=== PATIENT | male | born 1985 | race Caucasian/White ===

== ENCOUNTER 2016-10-08 14:32 | Emergency (ER) | payer MEDICAID, OTHER ==
[~2016-10-08] VITALS: Ht 177.8 cm; Wt 77.1 kg
[2016-10-08 14:32] VITALS: BP 144/78; PULSE 80; RESP 13; TEMP 97.8; O2SAT 96
--- NOTE | 2016-10-08 14:58 | NUR ---
Patient to ER Chair for evaluation. Side rails up. Report given to [place].
--- NOTE | 2016-10-08 15:00 | NUR ---
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
--- NOTE | 2016-10-08 15:11 | NUR ---
Silvana Subramanian GAG WRITER at bedside Examining patient
[2016-10-08] MEDS ORDERED: KETOROLAC TROMETHAMINE 60 MG/2 ML VIAL IM ONE (15:30)
--- NOTE | 2016-10-08 17:00 | NUR ---
Pt on stable condition, denies SOB or pain at this time. VSS
[2016-10-08 17:25] LABS: BASOPHILS % (AUTO) 0.3 % (0.0-2.0); EOSINOPHILS # (AUTO) 0.5 K/uL (0.0-0.4); EOSINOPHILS % (AUTO) 4.9 % (0.0-4.0); HEMOGLOBIN 15.6 g/dL (14.0-18.0); LYMPHOCYTES # (AUTO) 2.6 K/uL (1.0-5.5); LYMPHOCYTES % (AUTO) 26.1 % (20.5-51.5); MEAN CORPUSCULAR HEMOGLOBIN 31 pg (27-31); MEAN CORPUSCULAR HGB CONC 34 % (32-36); MEAN CORPUSCULAR VOLUME 90 fL (79.0-98.0); MONOCYTES % (AUTO) 9.9 % (1.7-9.3); NEUTROPHILS # (AUTO) 5.9 K/uL (1.8-7.7); NEUTROPHILS % (AUTO) 58.8 % (40.0-70.0); PLATELET COUNT (AUTO) 314 K/uL (130-430)
[2016-10-08 17:33] LABS: CALCIUM 9.1 mg/dL (8.4-11.0); CREATININE 1.04 mg/dL (0.55-1.30)
[2016-10-08 17:38] LABS: TOTAL BILIRUBIN 1.1 mg/dL (0.0-1.0); TOTAL PROTEIN, SERUM 7.9 g/dL (6.4-8.3)
--- NOTE | 2016-10-08 18:20 | NUR ---
Patient given written and verbal discharge instructions and verbalizes understanding. ER MD discussed with patient the results and treatment provided. Given copies of tests performed in ER. Patient in stable condition. ID arm band removed. Rx of Bacitracin given. Patient educated on pain management and to follow up with PMD. Pain Scale 0/10 . Opportunity for questions provided and answered.
[2016-10-08 18:30] VITALS: BP 142/78; PULSE 80; RESP 13; TEMP 97.8; O2SAT 96
--- NOTE | 2016-10-08 18:30 | NUR ---
Patient does not wish to proceed with medical care recommended by GISELA Pina. Patient given information related to possible complications, up to and including , which could occur as a result of leaving hospital at this time. Patient verbalizes understanding of risks involved leaving against medical advice. Patient has signed AMA form.
== END 2016-10-08 18:30 | disposition left against medical advice (07) ==
LOC: SED 14:33
DX: R07.9 Chest pain, unspecified (principal); F11.20 Opioid dependence, uncomplicated; F17.200 Nicotine dependence, unspecified, uncomplicated; R51 Headache; B19.20 Unspecified viral hepatitis C without hepatic coma; Z53.20 Procedure and treatment not carried out because of patient's decision for unspecified reasons
CPT/HCPCS: 36415; 71010; 80053; 83690; 84484; 85025; 85379; 93005; 96372; 99285; J1885

== ENCOUNTER 2017-05-11 18:12 | Emergency (ER) | payer MEDICAID ==
[~2017-05-11] VITALS: Ht 180.3 cm; Wt 76.2 kg
[2017-05-11 18:16] VITALS: BP_SYST 135
--- NOTE | 2017-05-11 18:16 | NUR ---
Placed in room 01. Placed on guide cruise, blood pressure machine and pulse oximeter. To gown for exam. Side rails up.
--- NOTE | 2017-05-11 19:10 | NUR ---
ER Dr. Davey at bedside examining patient.
--- NOTE | 2017-05-11 19:20 | NUR ---
Patient lethargic, slowed and slurred response when asked questions. Officer states that patient was found by his girlfriend prior to ER visit, states patient was unresponsive with drug paraphrenalia found next to the patient. Patient awakens in response to pain stimuli. No signs of bleeding or structural abnormalities noted to patient's body. Per patient, officer denies any other complaints.
--- NOTE | 2017-05-11 19:28 | NUR ---
[place] [employer] officers left ER, stated to call [place] [employer] once patient is stable.
[2017-05-11] MEDS ORDERED: NALOXONE HCL 2 MG/2 ML SYR (NARCAN) IM ONE (19:30)
--- NOTE | 2017-05-11 19:30 | NUR ---
ER Dr. Stanford at bedside examining patient.
[2017-05-11] MEDS ORDERED: NALOXONE HCL 2 MG/2 ML SYR ONE (19:39)
--- NOTE | 2017-05-11 19:40 | NUR ---
Patient stable, vital signs within therapeutic range. Symmetrical rise and fall of chest noted. Speech slow and slightly slurred, but able to communicate needs effectively. Will continue to monitor.
--- NOTE | 2017-05-11 19:48 | NUR ---
Patient AAOx4, able to state his name, , his age, and purpose for being in ER. Able to state current location. Vital signs within therapeutic range. Will continue to monitor.
--- NOTE | 2017-05-11 21:20 | NUR ---
Called [facility], states they are still trying to find information on the patient before coming to visit the patient in the ER. Will continue to monitor.
[2017-05-11 21:30] VITALS: BP_SYST 131
--- NOTE | 2017-05-11 21:30 | NUR ---
Patient in ER bed with girlfriend, told patient and patient's girlfriend that he needed to stay in the ER for discharge papers. Patient is alert and oriented x4, ambulatory with steady gait. Patient denies any complaints at this time. No signs of distress noted.
--- NOTE | 2017-05-11 21:42 | NUR ---
Patient left out of ER bay with girlfriend. Patient did not have ID armband when he left. I told the patient and girlfriend prior to this incident that they needed to stay in the ER in order to be formally discharged. Patient stable, no signs of distress noted. [place] [employer] states they will come to ER.
--- NOTE | 2017-05-11 22:52 | NUR ---
[place] [employer] officers have not come to ER despite phone calls from [employer].
== END 2017-05-11 21:42 | disposition left against medical advice (07) ==
LOC: SED 18:12
DX: F11.23 Opioid dependence with withdrawal (principal); R03.0 Elevated blood-pressure reading, without diagnosis of hypertension
CPT/HCPCS: 96372; 99283; J2310

== ENCOUNTER 2017-05-12 00:41 | Emergency (ER) | payer MEDICAID ==
[~2017-05-12] VITALS: Ht 180.3 cm; Wt 76.2 kg
[2017-05-12 00:50] VITALS: BP_SYST 159
--- NOTE | 2017-05-12 00:50 | NUR ---
ER Dr. Stanford at bedside examining patient.
--- NOTE | 2017-05-12 00:50 | NUR ---
Patient to ER bed 5 for evaluation. Side rails up. Report given to GAUDENCIO Cagle.
--- NOTE | 2017-05-12 00:51 | NUR ---
Patient in handcuffs. Plastic Sewer stated that [place] and was treated in [facility] earlier this evening. Officers state they want to make sure the patient is medically cleared. Patient alert and oriented to person, place, time, and purpose. Patient able to communicate by answering questions calmly and effectively. No signs of distress noted. Patient denies any other complaints.
[2017-05-12 01:00] VITALS: BP_SYST 149
[2017-05-12] MEDS ORDERED: NALOXONE HCL 2 MG/2 ML SYR (NARCAN) IM ONE (01:00)
--- NOTE | 2017-05-12 01:00 | NUR ---
Officer given written discharge instructions. Medical clearance paper signed by . Patient in stable condition. ID arm band removed. Pain Scale 0/10. Patient AAOx4, ambulatory. No signs of distress noted. Patient escorted out of ER bay in handcuffs with officers walking next to patient. Patient care endorsed to officers.
[2017-05-12] MEDS ORDERED: NALOXONE HCL 2 MG/2 ML SYR ONE (01:02)
== END 2017-05-12 01:00 ==
LOC: SED 00:41
DX: Z02.89 Encounter for other administrative examinations (principal); F11.10 Opioid abuse, uncomplicated
CPT/HCPCS: 96372; 99283; J2310